=== PATIENT | male | born 1965 | race Caucasian/White ===

== ENCOUNTER 2016-11-25 18:04 | Inpatient (IN) | payer MEDICARE, OTHER ==
[2016-11-25] VITALS (7 sets, daily range): BP systolic 145; BP diastolic 97; PULSE 54–86; RESP 20; TEMP 97.9–98.6; O2SAT 94–100
[~2016-11-25] VITALS: Ht 185.4 cm; Wt 81.1 kg
[~2016-11-25 18:04] MED LIST: GABA300 PO; LORTA5 PO; SERO400T PO; SILV1CRE59 TOP; ZOLP10TA3 PO
[2016-11-25] MEDS ORDERED: HEPARIN SODIUM - IV 10,000 UNITS/10 ML VIAL IV STA (18:08)
[2016-11-25] MEDS ORDERED: SODIUM CHLOR 0.9% 1000 ML INJ 1,000 ML IV ONE (18:08)
[2016-11-25] MEDS ORDERED: SODIUM CHLORIDE 0.9% FLUSH 10 ML FLUSH IVF PRN (18:15)
[2016-11-25] MEDS ORDERED: HEPARIN-D5W INJ 250 ML ONE (18:15)
--- NOTE | 2016-11-25 18:31 | PD ---
HPI Chief Complaint: STEMI Alert Time Seen by Provider: 18:08 Travel History International Travel<30 days: No Contact w/Intl Traveler<30days: No Traveled to known affect area: No History of Present Illness HPI 51-year-old male with history of hypertension, presents to the ER today brought in by EMS for substernal chest pains which she rates it a 10 out of 10, diaphoresis, nausea, which was evaluated by EMS. EKG shows ST elevation IL. EMS had given him aspirin. His blood pressure was initially low and nitroglycerin was not given by EMS. Patient has family history of father who had at the age of 63 due to IL. Modifying Factors: None Associated Signs & Symptoms: STEMI Risk Factors: Family history of IL at 60 PFSH Past Medical History Asthma: No Bipolar Disorder: Yes Diabetes: No Diminished Hearing: No Tetanus Vaccination: < 5 Years Influenza Vaccination: No ?: Not Past Surgical History Appendectomy: Yes Tonsillectomy: Yes Social History Alcohol Use: No Tobacco Use: No Substance Use: No Allergies-Medications (Allergen,Severity, Reaction): Coded Allergies: No Known Allergies (Unverified , 11/25/16) Per pt. Reported Meds & Prescriptions Reported Meds & Active Scripts Active [place] 5-325 mg (Hydrocodone-Acetaminophen 5-325 mg) 1 Tab 1 Tab PO Q6H PRN Silvadene (Silver Sulfadiazine) 50 Gm Cr 1 Applic TOP BID 14 Days Reported Ambien 10 Mg Tab (Zolpidem Tartrate) 10 Mg Tab 10 Mg PO HS Neurontin (Gabapentin) 300 Mg Cap 300 Mg PO DAILY Seroquel 400 mg (Quetiapine Fumarate) 400 Mg Tab 400 Mg PO HS Review of Systems Except as stated in HPI: all other systems reviewed are Neg Physical Exam Narrative GENERAL: Well-developed middle age white male patient who is in moderate distress. Awake and oriented 3. SKIN: Focused skin assessment cool and Diaphoretic. HEAD: Atraumatic. Normocephalic. EYES: Pupils equal and round. No scleral icterus. No injection or drainage. ENT: No nasal bleeding or discharge. Mucous membranes pink and moist. NECK: Trachea midline. No JVD. CARDIOVASCULAR: Regular rate and rhythm. No murmur appreciated. RESPIRATORY: No accessory muscle use. Clear to auscultation. Breath sounds equal bilaterally. GASTROINTESTINAL: Abdomen soft, non-tender, nondistended. Hepatic and splenic margins not palpable. MUSCULOSKELETAL: No obvious deformities. No clubbing. No cyanosis. No edema. NEUROLOGICAL: Awake and alert. No obvious cranial nerve deficits. Motor grossly within normal limits. Normal speech. PSYCHIATRIC: Appropriate mood and affect; insight and judgment normal. Data Data Last Documented VS Vital Signs Date Time Temp Pulse Resp B/P Pulse Ox O2 Delivery O2 Flow Rate FiO2 11/25/16 18:15 Nasal Cannula 2 11/25/16 18:15 97 11/25/16 18:09 97.9 54 20 145/97 Orders Troponin I (11/25/16 18:08) Ckmb (Isoenzyme) Profile (11/25/16 18:08) Complete Blood Count With Diff (11/25/16 18:08) I-Stat Profile (11/25/16 18:08) I-Stat Creatinine (11/25/16 18:08) Calcium (11/25/16 18:08) Magnesium (Mg) (11/25/16 18:08) Prothrombin Time / Inr (Pt) (11/25/16 18:08) Act Partial Throm Time (Ptt) (11/25/16 18:08) B-Type Natriuretic Peptide (11/25/16 18:08) Electrocardiogram (11/25/16 18:08) Oxygen Administration (11/25/16 18:08) Iv Access Insert/Monitor (11/25/16 18:08) Oximetry (11/25/16 18:08) Sodium Chlor 0.9% 1000 Ml Inj (Ns 1000 M (11/25/16 18:08) Sodium Chloride 0.9% Flush (Ns Flush) (11/25/16 18:15) Heparin Inj (Heparin Inj) (11/25/16 18:08) Heparin-D5w Inj (Heparin-D5w Inj) (11/25/16 18:15) Chest, Single Ap (11/25/16 18:20) Consult Cardiology (11/25/16 ) Admit Order (Ed Use Only) (11/25/16 18:23) MDM Medical Decision Making Medical Screen Exam Complete: Yes Emergency Medical Condition: Yes Medical Record Reviewed: Yes Interpretation(s) EKG shows ST elevations in inferior and lateral leads. His STs are depressed in the V1 through V3 leads. Concerning for ST elevation IL. Differential Diagnosis ST elevation IL versus pericarditis versus electrolyte abnormalities Narrative Course Case was discussed with Dr. Tafoya for ST elevation IL and ST elevation IL protocol was initiated and heparin was given. Patient is then discussed with family practice resident service for admission. Dr. Tafoya plans to take the patient to catheterization lab for further treatment. Procedures EKG Prior to Arrival: Yes Diagnosis Primary Impression: ST elevation IL (STEMI) Admitting Information Admitting Physician Requests: Admit Artemio Trinidad MD Nov 25, 2016 18:31
[2016-11-25 18:41] LABS: I-STAT SODIUM 141 MMOL/L (138-146)
[2016-11-25] MEDS ORDERED: MIDAZOLAM HCL 2 MG/2 ML VIAL ONE (18:42)
[2016-11-25] MEDS ORDERED: HEPARIN-NS/PF INJ 500 ML ONE (18:42)
[2016-11-25 18:45] LABS: APTT (PATIENT) 25.2 SEC (24.3-30.1); INTERNATIONAL NORMALIZED RATIO 1.1 RATIO; PROTHROMBIN TIME - PATIENT 12.1 SEC (9.8-11.6)
[2016-11-25 18:53] LABS: AUTOMATED NEUTROPHIL # 6.8 TH/MM3 (1.8-7.7); BASOPHIL # 0.1 TH/MM3 (0-0.2); BASOPHIL % 0.8 % (0.0-2.0); EOSINOPHIL # 0.1 TH/MM3 (0-0.4); EOSINOPHIL % 0.9 % (0.0-4.0); HEMATOCRIT 46.8 % (39.0-51.0); HEMO FLAGS DIFF FINAL; LYMPH % 31.3 % (9.0-44.0); LYMPHOCYTE # 3.7 TH/MM3 (1.0-4.8); MEAN CELL VOLUME 95.3 FL (80.0-100.0); MEAN CORPUSCULAR HEMOGLOBIN 31.9 PG (27.0-34.0); MEAN CORPUSCULAR HGB CONC 33.4 % (32.0-36.0); MONO % 8.8 % (0.0-8.0); NEUT % 58.2 % (16.0-70.0); PLATELET COUNT 290 TH/MM3 (150-450); RED BLOOD COUNT 4.91 MIL/MM3 (4.50-5.90); RED CELL DISTRIBUTION WIDTH 13.1 % (11.6-17.2); WHITE BLOOD COUNT 11.7 TH/MM3 (4.0-11.0)
[2016-11-25 18:59] LABS: CREATINE KINASE 101 U/L (39-308); MAGNESIUM 2.3 MG/DL (1.5-2.5)
[2016-11-25] MEDS ORDERED: BIVALIRUDIN 250 MG VIAL ONE (18:59)
[2016-11-25] MEDS ORDERED: STERILE WATER FOR INJECTION 10 ML VIAL ONE (19:00)
[2016-11-25] MEDS ORDERED: SODIUM CHLOR 0.9% 1000 ML INJ 1,000 ML IV SCH (19:11)
[2016-11-25 19:12] LABS: CKMB 2.1 NG/ML (0.5-3.6)
[2016-11-25] MEDS ORDERED: MORPHINE SULFATE 4 MG/ML INJ IV PRN (19:15)
[2016-11-25] MEDS ORDERED: SENNOSIDES 8.6 MG TAB PO PRN (19:15)
[2016-11-25] MEDS ORDERED: NALOXONE HCL 0.4 MG/ML AMP IV PRN (19:15)
[2016-11-25] MEDS ORDERED: ONDANSETRON HCL 4 MG/2 ML VIAL IVP PRN (19:15)
[2016-11-25] MEDS ORDERED: oxyCODONE/ACETAMINOPHEN 5 MG/325 MG TAB PO PRN ×2 (19:15→19:45)
[2016-11-25] MEDS ORDERED: SODIUM CHLORIDE 0.9% FLUSH 10 ML FLUSH IV FLUSH PRN (19:15)
[2016-11-25] MEDS ORDERED: oxyCODONE/ACETAMINOPHEN 10 MG/325 MG TAB PO PRN (19:15)
--- NOTE | 2016-11-25 19:18 | RADRPT ---
EXAM DATE/TIME: 11/25/2016 18:28 [facility] COMPARISON: No previous studies available for comparison. INDICATIONS : Stemi Alert MEDICAL HISTORY : None. SURGICAL HISTORY : None. ENCOUNTER: Initial ACUITY: 1 day PAIN SCORE: 8/10 LOCATION: Bilateral chest FINDINGS: A single view of the chest demonstrates the lungs to be symmetrically aerated without evidence of mas s, infiltrate or effusion. The cardiomediastinal contours are unremarkable. Osseous structures are intact. CONCLUSION: No acute cardiopulmonary process. Garcia Milton MD on November 25, 2016 at 19:16 Board Certified Radiologist. This report was verified electronically.
[2016-11-25] MEDS ORDERED: LIDOCAINE/D5W INJ 500 ML ONE (19:22)
[2016-11-25] MEDS ORDERED: TICAGRELOR 90 MG TAB PO ONE (19:26)
[2016-11-25] MEDS ORDERED: IOHEXOL 350 MG/ML 100 ML BTL (for Cath Lab) OTHER ONE (19:30)
[2016-11-25] MEDS: SODIUM CHLOR 0.9% 1000 ML INJ 1,000 ML IV SCH (19:40)
[2016-11-25] MEDS ORDERED: BIVALIRUDIN INJ 250 MG in SODIUM CHLORIDE 0.9% INJ 50 ML IV SCH (19:40)
[2016-11-25] MEDS ORDERED: ACETAMINOPHEN 325 MG TAB PO PRN (19:45)
[2016-11-25] MEDS ORDERED: ONDANSETRON HCL 4 MG/2 ML VIAL IV PRN (19:45)
[2016-11-25] MEDS ORDERED: SODIUM CHLOR 0.9% 250 ML INJ 250 ML IV PRN (19:45)
[2016-11-25] MEDS ORDERED: ATROPINE SULFATE 1 MG/ML VIAL IV PRN (19:45)
[2016-11-25] MEDS ORDERED: TEMAZEPAM 15 MG CAP PO PRN (19:45)
[2016-11-25] MEDS ORDERED: MISC INFORMATION XX ONE (19:45)
[2016-11-25] MEDS ORDERED: MORPHINE SULFATE 4 MG/ML INJ IV PUSH PRN (19:45)
[2016-11-25] MEDS ORDERED: LORazepam 2 MG/ML VIAL IV PRN (19:45)
[2016-11-25] MEDS: SODIUM CHLORIDE 0.9% FLUSH 10 ML FLUSH IV FLUSH SCH (21:00)
--- NOTE | 2016-11-25 21:02 | HHI.HP ---
HPI Service Family Medicine Primary Care Physician Unknown Admission Diagnosis STEMI alert Diagnoses: International Travel<30 Days: No Contact w/Intl Traveler<30days: No Known Affected Area: No History of Present Illness 51-year-old male with history of hypertension currently not requiring medication , bipolar depression presenting with substernal chest pains beginning mid- morning, slowly building to 10 out of 10 in severity. A/w diaphoresis, nausea, numbness b/l hands. No shortness of breath or abdominal pain. No fevers. FH significant for father and uncle with early MS (60 yo for father, ~62 for uncle) . (Todd Cherry MD R1) Review of Systems Constitutional: DENIES: Fever Endocrine: DENIES: Polyuria Eyes: DENIES: Blurred vision Ears, nose, mouth, throat: DENIES: Hearing loss Respiratory: DENIES: Shortness of breath Cardiovascular: COMPLAINS OF: Chest pain, DENIES: Palpitations, Lower Extremity Edema Gastrointestinal: COMPLAINS OF: Nausea, DENIES: Abdominal pain, Vomiting Genitourinary: DENIES: Dysuria Musculoskeletal: DENIES: Muscle aches Integumentary: DENIES: Rash Hematologic/lymphatic: DENIES: Bruising Neurologic: COMPLAINS OF: Paresthesias (b/l hands), DENIES: Headache, Localized weakness Psychiatric: DENIES: Confusion (Todd Cherry MD R1) Past Family Social History Past Medical History Bipolar depression HTN not needing medication Past Surgical History Appendectomy Reported Medications Reported Meds & Active Scripts Active [place] 5-325 mg (Hydrocodone-Acetaminophen 5-325 mg) 1 Tab 1 Tab PO Q6H PRN Silvadene (Silver Sulfadiazine) 50 Gm Cr 1 Applic TOP BID 14 Days Reported Ambien 10 Mg Tab (Zolpidem Tartrate) 10 Mg Tab 10 Mg PO HS Neurontin (Gabapentin) 300 Mg Cap 300 Mg PO DAILY Seroquel 400 mg (Quetiapine Fumarate) 400 Mg Tab 400 Mg PO HS (Todd Cherry MD R1) Allergies: Coded Allergies: No Known Allergies (Unverified , 11/25/16) Per pt. Active Ordered Medications Current Medications Medications (Trade) Dose Ordered Sig/Lesli Route Start Time Stop Time Status Last Admin (NS 1000 ml Inj) 1,000 ml @ 130 mls/hr Q7H42M IV 11/25/16 19:11 (NS Flush) 2 ml UNSCH PRN IV FLUSH 11/25/16 19:15 (NS Flush) 2 ml BID IV FLUSH 11/25/16 21:00 (Colace) 100 mg Q12H PO 11/25/16 19:15 (Senokot) 17.2 mg Q12H PRN PO 11/25/16 19:15 Naloxone HCl 0.4 mg 0.4 mg UNSCH PRN IV 11/25/16 19:15 (NS 1000 ml Inj) 1,000 ml @ 100 mls/hr Q10H IV 11/25/16 19:40 11/26/16 07:39 (Tylenol) 325 mg Q4H PRN PO 11/25/16 19:45 (Percocet 5-325 Mg) 1 tab Q4H PRN PO 11/25/16 19:45 (Morphine Inj) 2 mg Q30M PRN IV PUSH 11/25/16 19:45 (Restoril) 15 mg HS PRN PO 11/25/16 19:45 (Aspirin Chew) 81 mg DAILY PO 11/26/16 09:00 Ticagrelor 90 mg 90 mg BID PO 11/26/16 09:00 (Angiomax Inj/NS Inj) 50 ml @ 0 mls/hr Q0M IV 11/25/16 19:40 11/25/16 23:39 (Ativan Inj) 0.5 mg UNSCH PRN IV 11/25/16 19:45 11/26/16 19:44 Atropine Sulfate 0.5 mg 0.5 mg UNSCH PRN IV 11/25/16 19:45 (NS 250 ml Inj) 250 ml @ 500 mls/hr ONCE PRN IV 11/25/16 19:45 11/26/16 19:44 (Zofran Inj) 4 mg Q4H PRN IV 11/25/16 19:45 (Coreg) 3.125 mg BID PO 11/25/16 21:00 (Prinivil) 5 mg DAILY PO 11/26/16 09:00 (Lipitor) 40 mg DAILY PO 11/26/16 09:00 Family History Father of MS age 60. Uncle had MS age ~62 Social History Smoked since age 15, currently 2 PPD. H/o alcohol abuse, sober for last 3 years. Marijuana use, last use 3 years ago. Denies other drug use. (Todd hCerry MD R1) Physical Exam Vital Signs Vital Signs Date Time Temp Pulse Resp B/P Pulse Ox O2 Delivery O2 Flow Rate FiO2 11/25/16 19:30 96 Nasal Cannula 2.00 11/25/16 18:15 Nasal Cannula 2 11/25/16 18:15 97 Nasal Cannula 2 11/25/16 18:15 100 Nasal Cannula 2.00 11/25/16 18:09 97.9 54 20 145/97 97 Physical Exam GENERAL: WDWN adult white male with scruffy facial hair lying in bed appearing slightly anxious but in NAD SKIN: No rashes, ecchymoses or lesions. Cool and dry. HEAD: NC/AT EYES: PERRL. EOMI. No conjunctival injection or drainage. ENT: MMM. NECK: Supple, no lymphadenopathy. No JVD. CARDIOVASCULAR: Low normal HR to mildly bradycardic. Normal S1/S2. No MRG. RESPIRATORY: Clear lung arriaza anteriorly. GASTROINTESTINAL: Abdomen soft, non-distended, non-tender. No hepato- splenomegaly or palpable masses. MUSCULOSKELETAL: Extremities without clubbing, cyanosis, or edema. NEUROLOGICAL: Awake and alert. Cranial nerves II through XII grossly intact. Moves all extremities without difficulty. Normal speech. Laboratory Laboratory Tests Test 11/25/16 18:10 White Blood Count 11.7 Red Blood Count 4.91 Hemoglobin 15.7 Bedside Hemoglobin 16.3 Hematocrit 46.8 Bedside Hematocrit 48.0 Mean Corpuscular Volume 95.3 Mean Corpuscular Hemoglobin 31.9 Mean Corpuscular Hemoglobin 33.4 Concent Red Cell Distribution Width 13.1 Platelet Count 290 Mean Platelet Volume 9.1 Neutrophils (%) (Auto) 58.2 Lymphocytes (%) (Auto) 31.3 Monocytes (%) (Auto) 8.8 Eosinophils (%) (Auto) 0.9 Basophils (%) (Auto) 0.8 Neutrophils # (Auto) 6.8 Lymphocytes # (Auto) 3.7 Monocytes # (Auto) 1.0 Eosinophils # (Auto) 0.1 Basophils # (Auto) 0.1 CBC Comment DIFF FINAL Differential Comment Prothrombin Time 12.1 Prothromb Time International 1.1 Ratio Activated Partial 25.2 Thromboplast Time Bedside Sodium 141 Bedside Potassium 4.0 Bedside Chloride 105 Bedside Blood Urea Nitrogen 18 Bedside Creatinine 0.9 Bedside Glucose 116 Calcium Level 10.3 Magnesium Level 2.3 Total Creatine Kinase 101 Creatine Kinase MB 2.1 Troponin I 0.11 B-Type Natriuretic Peptide LESS THAN 2 (Todd Cherry MD R1) Result Diagram: 11/25/161809 Imaging Last Impressions Chest X-Ray 11/25/161819 Signed Impressions: Service Date/Time: Sunday, November 25, 2016 18:28 - CONCLUSION: No acute cardiopulmonary process. Garcia Milton MD Course EKG shows ST elevation MS inferiorly, likely posterior MS. EMS had given him aspirin. His blood pressure was initially low and nitroglycerin was not given by EMS. Cardiology taking patient for catheterization. (Todd Cherry MD R1) Assessment and Plan Assessment and Plan 51 yo male with h/o bipolar depression and HTN presenting with: (Todd Cherry MD R1) Attending Attestation Patient seen and examined. Case reviewed and discussed with the resident team. Agree with plan of care as discussed with me and documented in the resident note. pt seen on admission prior to cath, has impressive EKG (Della Sherman MD) Problem List: (1) ST elevation MS (STEMI) Status: Acute Plan: STEMI by EKG, history classic. - Cardiology (Dr. Tafoya) taking patient for cath - Will need statin, optimization of BP after cath - ASA daily - Antiplatelet therapy per cardiology - Pain control with Percocet 10 for mod-severe pain - Morphine 4 mg IV Q3H PRN chest pain - Echocardiogram - Telemetry - Vitals Q4H (2) Essential hypertension Status: Chronic Plan: BPs currently running low to normal. - Evaluate in AM; will likely be placed on beta-nabil due to MS, titrate based on BP (3) Bipolar depression Status: Chronic Plan: Per patient takes Seroquel 300 mg HS, Neurontin 300 mg HS, Prozac 25 mg daily, but has been off medications for several weeks. Sx stable. - Since psychiatric medicines can prolong QT and cause arrhythmia, will hold for now - Will re-evaluate in AM, likely will need to be addressed by outpatient psychiatrist (sees one at [facility] (4) FEN/PPX Status: Acute Plan: Fluids: PO only after cath Elecs: Monitor and replete Nutrition: Diet heart healthy after cath DVT: Received heparin prior to cath, continue PPX tomorrow sdw Dr. Sherman (Todd Cherry MD R1) Physician Certification 2 Midnight Certification Type: Admission for Inpatient Services Order for Inpatient Services The services are ordered in accordance with Medicare regulations or non- Medicare payer requirements, as applicable. In the case of services not specified as inpatient-only, they are appropriately provided as inpatient services in accordance with the 2-midnight benchmark. Estimated LOS (days): 2 days is the estimated time the patient will need to remain in the hospital, assuming treatment plan goals are met and no additional complications. Post-Hospital Plan: Home (Todd Cherry MD R1) Problem Qualifiers (1) ST elevation MS (STEMI): Qualified Code: I21.21 - ST elevation myocardial infarction involving left circumflex coronary artery Todd Cherry MD R1 Nov 25, 2016 21:02 Della Sherman MD Nov 26, 2016 17:32
--- NOTE | 2016-11-25 21:46 | MB ---
cc: SEAN PETERSEN M.D. DATE OF CONSULTATION 11/25/16 REASON FOR CONSULTATION Acute STEMI CHIEF COMPLAINT Chest pain. HISTORY OF PRESENT ILLNESS Elton Valverde is a 51-year-old man brought in by EMS for an acute AL. He had 10/10 chest pain starting about an hour prior to admission. His father had coronary artery disease and at age 63 of an AL. He has smoked two packs a day since he was 15, having just recently switched to instead of smoking. Denies illicit drug use. He has a history of bipolar disease. MEDICATIONS 1. Gabapentin 2. Prozac PAST MEDICAL HISTORY Bipolar disease. PAST SURGICAL HISTORY 1. Appendectomy. 2. Tonsillectomy. SOCIAL HISTORY Notable for tobacco use. REVIEW OF SYSTEMS Negative for bleeding. Remains review of systems negative. PHYSICAL EXAMINATION GENERAL: Well-developed, well-nourished man in moderate distress. HEENT: Atraumatic, normocephalic. NECK: No JVD, no bruits. CHEST: Clear to auscultation. CARDIAC: S1, S2, S4 regular rate and rhythm. No murmur. ABDOMEN: Soft, nontender. No masses, organomegaly. EXTREMITIES: No clubbing, cyanosis or edema. Pulses are intact. CARDIOLOGY STUDIES EKG shows sinus bradycardia with extensive ST elevation inferiorly, ST depression anteriorly with 10 leads out of [address]-segment shifting. LABORATORY DATA Laboratories are charted. IMPRESSION Acute inferior posterior STEMI PLAN The patient has undergone stenting of the infarct-related artery. We will introduce YARY inhibitors, beta nabil, statin therapy aspirin and Brilinta. Anticipated hospital stay is a couple of days. MD GEORGE Valle/ /7:49 PM /9:29 PM
[2016-11-25] MEDS: CARVEDILOL 3.125 MG TAB PO SCH (22:23)
[2016-11-25] MEDS: DOCUSATE SODIUM 100 MG CAP PO SCH (22:23)
[2016-11-26] VITALS (26 sets, daily range): BP systolic 85–123; BP diastolic 50–78; PULSE 57–96; RESP 16–20; TEMP 97.3–99.1; O2SAT 92–100
--- NOTE | 2016-11-26 04:22 | MA ---
cc: SEAN PETERSEN M.D. DATE: 11/25/2016 PREOPERATIVE DIAGNOSIS Acute inferoposterior ST-segment elevation [place]. POSTPROCEDURE DIAGNOSIS Total occlusion of the major circumflex marginal branch. PROCEDURE PERFORMED Left heart catheterization, left ventriculography, coronary angiography, balloon angioplasty and stenting of the major first obtuse marginal branch of the left circumflex coronary artery. DESCRIPTION OF PROCEDURE The patient was brought to the cardiac medical laboratory assistant under emergency conditions with a STEMI. Using 1% lidocaine for local anesthesia access was obtained of the right femoral artery and a 6.5-Moldovan sheath placed. I started with a right 4 Courtney guiding catheter and took angiograms of the right coronary artery. This was not the infarct-related artery. However, I then took diagnostic angiograms of the left coronary artery using a 6-Moldovan left 4.5 Courtney catheter. I then switched to a 6-[place]old[place] XB 4.0 guiding catheter. The circumflex artery was then wired with a BMW wire. I then ballooned it with a 3.0 x 20 mm balloon. Before I could inserta stent, the patient then went into V-fib and had to be shocked. Drug-eluting stent was getting ready to be put in and he had to be shocked a second time. Following that, the stent was deployed across the lesion at 10 atmospheres. The central portion of the stent was then post dilated with a 3.5 x 20 mm NC balloon at 16 atmospheres. An outstanding angiographic result was achieved with tremendous improvement in his symptoms. He then kind of stayed in an accelerated idioventricular rhythm but had a stable blood pressure. An angled pigtail catheter was then used to measure left ventricular pressure followed by a hand injection and then a pullback. The sheath was then sewn in place. The patient is going to be transferred to the [facility]. Currently he is stable. FINDINGS HEMODYNAMICS Left ventricular pressure was 113 systolic with an end-diastolic pressure of 14. Aortic pressure was 127/82 with a mean of 102. There is no gradient during pullback from the left ventricle to the aorta. LEFT VENTRICULOGRAPHY Ejection fraction was about 45% with severe inferoapical hypokinesis. There is no mitral regurgitation. CORONARY ANGIOGRAPHY The left main coronary artery appears normal. It bifurcates into the LAD and circumflex vessels. The left main coronary artery appears normal. The left anterior descending artery has about 10% proximal irregularities. There is a very early proximal diagonal branch given off which has 60-70% proximal stenosis. The circumflex artery is technically nondominant although it does give off a very large obtuse marginal branch and a significant distal circumflex vessel. The major obtuse marginal branch is totally occluded in stump-like fashion. The right coronary artery is technically dominant but it is small caliber. It has a funnel shape vertical takeoff with a proximal curve that is prominent from where it courses around the aorta. It is a small caliber vessel. It does give off a small PDA and a small posterolateral branch. It has some 20% mid irregularities. RESULTS OF STENTING Following stenting of the major obtuse marginal branch, 0% residual stenosis has been achieved with a nice step-up on both sounds and nondenominational of KAYKAY grade 3 flow. CONCLUSION 1. Mildly impaired LV function. 2. Acute ST-segment elevation [place] due to total occlusion of a very large obtuse marginal branch. 3. Successful drug-eluting stent, implantation of the obtuse marginal branch. 4. Procedure complicated by V-fib requiring two cardioversions with success. PLAN The patient will be placed on aspirin and Brilinta. Will introduce beta-blockers and YARY inhibitors gradually as hemodynamics permit. Will check lipid values and place him on statin therapy as appropriate. He will be advised to completely discontinue nicotine products. MD GEORGE Valle/DONI /7:38 PM /3:44 AM
[2016-11-26 05:04] LABS: AUTOMATED NEUTROPHIL # 9.7 TH/MM3 (1.8-7.7); BASOPHIL % 0.2 % (0.0-2.0); EOSINOPHIL % 0.4 % (0.0-4.0); HEMATOCRIT 39.4 % (39.0-51.0); HEMO FLAGS DIFF FINAL; LYMPH % 11.6 % (9.0-44.0); LYMPHOCYTE # 1.4 TH/MM3 (1.0-4.8); MEAN CELL VOLUME 94.6 FL (80.0-100.0); MEAN CORPUSCULAR HEMOGLOBIN 32.6 PG (27.0-34.0); MEAN CORPUSCULAR HGB CONC 34.4 % (32.0-36.0); NEUT % 77.8 % (16.0-70.0); PLATELET COUNT 253 TH/MM3 (150-450); RED BLOOD COUNT 4.16 MIL/MM3 (4.50-5.90); RED CELL DISTRIBUTION WIDTH 12.7 % (11.6-17.2); WHITE BLOOD COUNT 12.5 TH/MM3 (4.0-11.0)
[2016-11-26 05:28] LABS: BICARBONATE 23.9 MEQ/L (21.0-32.0)
[2016-11-26] MEDS: SODIUM CHLOR 0.9% 1000 ML INJ 1,000 ML IV SCH (05:40)
[2016-11-26 05:45] LABS: HDL CHOLESTEROL 41.6 MG/DL (40.0-60.0)
--- NOTE | 2016-11-26 07:52 | HHI.HP ---
HPI Service Family Medicine Primary Care Physician Unknown Admission Diagnosis STEMI alert Diagnoses: (1) ST elevation [place] (STEMI) Diagnosis: Principal (2) Essential hypertension Diagnosis: Principal (3) Bipolar depression Diagnosis: Principal (4) FEN/PPX Diagnosis: Principal International Travel<30 Days: No Contact w/Intl Traveler<30days: No Known Affected Area: No History of Present Illness Mr Valverde is a 51-year-old male with history of hypertension currently not requiring medication and bipolar depression presenting with substernal chest pains beginning mid-morning of admission, slowly building to 10 out of 10 in severity. He had diaphoresis, nausea, numbness b/l hands. No shortness of breath or abdominal pain. No fevers. FH significant for father and uncle with early DC (60 yo for father, ~62 for uncle). He had a cardiac cath and had a stent placed with good result. He required shocking twice during the procedure because of arrhythmias but feels the electricity "made him think clearer and feel better". He reports feeling great today. Review of Systems Other Constitutional: DENIES: Fever Endocrine: DENIES: Polyuria Eyes: DENIES: Blurred vision Ears, nose, mouth, throat: DENIES: Hearing loss Respiratory: DENIES: Shortness of breath Cardiovascular: COMPLAINS OF: Chest pain, DENIES: Palpitations, Lower Extremity Edema Gastrointestinal: COMPLAINS OF: Nausea, DENIES: Abdominal pain, Vomiting Genitourinary: DENIES: Dysuria Musculoskeletal: DENIES: Muscle aches Integumentary: DENIES: Rash Hematologic/lymphatic: DENIES: Bruising Neurologic: COMPLAINS OF: Paresthesias (b/l hands), DENIES: Headache, Localized weakness Psychiatric: DENIES: Confusion Past Family Social History Past Medical History Bipolar depression HTN not needing medication Past Surgical History Appendectomy Allergies: Coded Allergies: No Known Allergies (Unverified , 11/25/16) Per pt. Family History Father of DC age 60. Uncle had DC age ~62 Social History Smoked since age 15, currently 2 PPD. H/o alcohol abuse, sober for last 3 years. Marijuana use, last use 3 years ago. Denies other drug use. Physical Exam Vital Signs Vital Signs Date Time Temp Pulse Resp B/P Pulse Ox O2 Delivery O2 Flow Rate FiO2 11/26/16 07:00 99.1 78 16 85/50 98 11/26/16 07:00 98 Room Air 11/26/16 07:00 65 11/26/16 06:00 63 11/26/16 05:46 22 11/26/16 05:00 88 11/26/16 04:00 90 11/26/16 03:33 92 Nasal Cannula 21 11/26/16 03:00 98.0 91 20 90/55 98 11/26/16 03:00 93 11/26/16 02:00 86 11/26/16 01:00 72 11/26/16 00:00 60 11/26/16 00:00 97.4 87 20 105/60 97 11/25/16 23:00 75 11/25/16 22:00 86 11/25/16 21:00 86 11/25/16 20:00 98.6 79 20 94 11/25/16 20:00 79 11/25/16 20:00 94 Room Air 11/25/16 19:30 96 Nasal Cannula 2.00 11/25/16 18:15 Nasal Cannula 2 11/25/16 18:15 97 Nasal Cannula 2 11/25/16 18:15 100 Nasal Cannula 2.00 11/25/16 18:09 97.9 54 20 145/97 97 Physical Exam GENERAL: WDWN adult white male with scruffy facial hair sitting in bed in NAD SKIN: No rashes, ecchymoses or lesions. Cool and dry. HEAD: NC/AT EYES: PERRL. EOMI. No conjunctival injection or drainage. ENT: MMM. NECK: Supple, no lymphadenopathy. No JVD. CARDIOVASCULAR: Low normal HR to mildly bradycardic. Normal S1/S2. No MRG. RESPIRATORY: Clear lung arriaza anteriorly. GASTROINTESTINAL: Abdomen soft, non-distended, non-tender. No hepato- splenomegaly or palpable masses. MUSCULOSKELETAL: Extremities without clubbing, cyanosis, or edema. NEUROLOGICAL: Awake and alert. Cranial nerves II through XII grossly intact. Moves all extremities without difficulty. Normal speech. Laboratory Laboratory Tests Test 11/25/16 11/26/16 18:10 03:15 White Blood Count 11.7 12.5 Red Blood Count 4.91 4.16 Hemoglobin 15.7 13.6 Bedside Hemoglobin 16.3 Hematocrit 46.8 39.4 Bedside Hematocrit 48.0 Mean Corpuscular Volume 95.3 94.6 Mean Corpuscular Hemoglobin 31.9 32.6 Mean Corpuscular Hemoglobin 33.4 34.4 Concent Red Cell Distribution Width 13.1 12.7 Platelet Count 290 253 Mean Platelet Volume 9.1 9.2 Neutrophils (%) (Auto) 58.2 77.8 Lymphocytes (%) (Auto) 31.3 11.6 Monocytes (%) (Auto) 8.8 10.0 Eosinophils (%) (Auto) 0.9 0.4 Basophils (%) (Auto) 0.8 0.2 Neutrophils # (Auto) 6.8 9.7 Lymphocytes # (Auto) 3.7 1.4 Monocytes # (Auto) 1.0 1.2 Eosinophils # (Auto) 0.1 0.0 Basophils # (Auto) 0.1 0.0 CBC Comment DIFF FINAL DIFF FINAL Differential Comment Prothrombin Time 12.1 Prothromb Time International 1.1 Ratio Activated Partial 25.2 Thromboplast Time Bedside Sodium 141 Bedside Potassium 4.0 Bedside Chloride 105 Bedside Blood Urea Nitrogen 18 Bedside Creatinine 0.9 Bedside Glucose 116 Calcium Level 10.3 8.6 Magnesium Level 2.3 Total Creatine Kinase 101 1466 Creatine Kinase MB 2.1 170.0 Troponin I 0.11 B-Type Natriuretic Peptide LESS THAN 2 Sodium Level 139 Potassium Level 4.0 Chloride Level 106 Carbon Dioxide Level 23.9 Anion Gap 9 Blood Urea Nitrogen 18 Creatinine 0.81 Estimat Glomerular Filtration 100 Rate Random Glucose 106 Creatine Kinase MB % 11.6 Triglycerides Level 183 Cholesterol Level 171 LDL Cholesterol 93 HDL Cholesterol 41.6 Cholesterol/HDL Ratio 4.11 Result Diagram: 11/26/165 11/26/16 0315 Imaging Last Impressions Chest X-Ray 11/25/16 1820 Signed Impressions: Service Date/Time: Friday, November 25, 2016 18:28 - CONCLUSION: No acute cardiopulmonary process. Garcia Milton MD Assessment and Plan Assessment and Plan 51 yo male with h/o bipolar depression and HTN presenting with: Problem List: (1) ST elevation [place] (STEMI) Status: Acute Plan: STEMI by EKG, history classic. - Cardiology (Dr. Tafoya) took patient for cath, had stent - Will need statin, optimization of BP after cath - ASA daily - Antiplatelet therapy per cardiology - Pain control with Percocet 10 for mod-severe pain - Morphine 4 mg IV Q3H PRN chest pain - Echocardiogram - Telemetry - Vitals Q4H (2) Essential hypertension Status: Chronic Plan: BPs currently running low to normal. - Evaluate in AM; will likely be placed on beta-nabil due to DC, titrate based on BP (3) Bipolar depression Status: Chronic Plan: Per patient takes Seroquel 300 mg HS, Neurontin 300 mg HS, Prozac 25 mg daily, but has been off medications for several weeks. Sx stable. - pt requests restarting meds and can check EKG to be sure he does not develop problems - likely will need to be addressed by outpatient psychiatrist (sees one at [facility]) but will start meds now lower doses (4) FEN/PPX Status: Acute Plan: Fluids: PO only after cath Elecs: Monitor and replete Nutrition: Diet heart healthy after cath DVT: Received heparin prior to cath, continue PPX tomorrow Physician Certification 2 Midnight Certification Type: Admission for Inpatient Services Order for Inpatient Services The services are ordered in accordance with Medicare regulations or non- Medicare payer requirements, as applicable. In the case of services not specified as inpatient-only, they are appropriately provided as inpatient services in accordance with the 2-midnight benchmark. Estimated LOS (days): 3 3 days is the estimated time the patient will need to remain in the hospital, assuming treatment plan goals are met and no additional complications. Post-Hospital Plan: Home Problem Qualifiers (1) ST elevation DC (STEMI): Qualified Code: I21.21 - ST elevation myocardial infarction involving left circumflex coronary artery Della Sherman MD Nov 26, 2016 07:52
[2016-11-26] MEDS: ATORVASTATIN 40 MG TAB PO SCH (09:03)
[2016-11-26] MEDS: SODIUM CHLORIDE 0.9% FLUSH 10 ML FLUSH IV FLUSH SCH ×2 (09:03→21:04)
[2016-11-26] MEDS: ASPIRIN 81 MG CHEW TAB PO SCH (09:04)
[2016-11-26] MEDS: CARVEDILOL 3.125 MG TAB PO SCH ×2 (09:04→21:00)
[2016-11-26] MEDS: DOCUSATE SODIUM 100 MG CAP PO SCH ×2 (09:04→18:40)
[2016-11-26] MEDS: TICAGRELOR 90 MG TAB PO SCH ×2 (09:04→20:59)
[2016-11-26] MEDS: LISINOPRIL 5 MG TAB PO SCH (09:04)
[2016-11-26] MEDS: GABAPENTIN 300 MG CAP PO SCH (11:30)
[2016-11-26] MEDS: FLUoxetine HCL 20 MG CAP PO SCH (11:30)
--- NOTE | 2016-11-26 13:14 | PD.CARD.PN ---
Subjective Subjective Remarks no complaints Objective Medications Current Medications Medications (Trade) Dose Ordered Sig/Lesli Route Start Time Stop Time Status Last Admin (NS Flush) 2 ml UNSCH PRN IV FLUSH 11/25/16 19:15 (NS Flush) 2 ml BID IV FLUSH 11/25/16 21:00 11/26/16 09:03 (Colace) 100 mg Q12H PO 11/25/16 19:15 11/26/16 09:04 (Senokot) 17.2 mg Q12H PRN PO 11/25/16 19:15 (Narcan Inj) 0.4 mg UNSCH PRN IV 11/25/16 19:15 (Tylenol) 325 mg Q4H PRN PO 11/25/16 19:45 (Percocet 5-325 Mg) 1 tab Q4H PRN PO 11/25/16 19:45 11/26/16 05:03 (Morphine Inj) 2 mg Q30M PRN IV PUSH 11/25/16 19:45 (Restoril) 15 mg HS PRN PO 11/25/16 19:45 (Aspirin Chew) 81 mg DAILY PO 11/26/16 09:00 11/26/16 09:04 (Brilinta) 90 mg BID PO 11/26/16 09:00 11/26/16 09:04 (Ativan Inj) 0.5 mg UNSCH PRN IV 11/25/16 19:45 11/26/16 19:44 Atropine Sulfate 0.5 mg 0.5 mg UNSCH PRN IV 11/25/16 19:45 (NS 250 ml Inj) 250 ml @ 500 mls/hr ONCE PRN IV 11/25/16 19:45 11/26/16 19:44 (Zofran Inj) 4 mg Q4H PRN IV 11/25/16 19:45 (Coreg) 3.125 mg BID PO 11/25/16 21:00 11/26/16 09:04 (Prinivil) 5 mg DAILY PO 11/26/16 09:00 11/26/16 09:04 (Lipitor) 40 mg DAILY PO 11/26/16 09:00 11/26/16 09:03 (PROzac) 20 mg DAILY PO 11/26/16 11:15 11/26/16 11:30 (Neurontin) 300 mg DAILY PO 11/26/16 11:15 11/26/16 11:30 (SEROquel) 100 mg HS PO 11/26/16 21:00 Vital Signs / I&O Vital Signs Date Time Temp Pulse Resp B/P Pulse Ox O2 Delivery O2 Flow Rate FiO2 11/26/16 12:00 69 11/26/16 11:00 97.3 65 20 123/78 100 11/26/16 11:00 67 11/26/16 10:00 72 11/26/16 09:00 61 11/26/16 08:00 71 11/26/16 07:00 99.1 78 16 85/50 98 11/26/16 07:00 98 Room Air 11/26/16 07:00 65 11/26/16 06:00 63 11/26/16 05:46 22 11/26/16 05:00 88 11/26/16 04:00 90 11/26/16 03:33 92 Nasal Cannula 21 11/26/16 03:00 98.0 91 20 90/55 98 11/26/16 03:00 93 11/26/16 02:00 86 11/26/16 01:00 72 11/26/16 00:00 60 11/26/16 00:00 97.4 87 20 105/60 97 11/25/16 23:00 75 11/25/16 22:00 86 11/25/16 21:00 86 11/25/16 20:00 98.6 79 20 94 11/25/16 20:00 79 11/25/16 20:00 94 Room Air 11/25/16 19:30 96 Nasal Cannula 2.00 11/25/16 18:15 Nasal Cannula 2 11/25/16 18:15 97 Nasal Cannula 2 11/25/16 18:15 100 Nasal Cannula 2.00 11/25/16 18:09 97.9 54 20 145/97 97 I/O 11/25/16 11/25/16 11/25/16 11/26/16 11/26/16 11/26/16 07:00 15:00 23:00 07:00 15:00 23:00 Intake Total 1600 ml Output Total 750 ml Balance 850 ml Intake Oral 600 ml IV Total 1000 ml Output Urine Total 750 ml # Bowel Movements 0 Physical Exam GENERAL: Well developed, well nourished. No acute distress. HEENT: Jugular venous pressure is normal. CHEST: Lungs clear to auscultation bilaterally. Unlabored respiratory effort. CARDIAC: S1 S2 regular rate and rhythm. ABDOMEN: Soft, nontender, no hepatosplenomegaly. Bowel sounds present. EXTREMITIES: No clubbing, cyanosis, or edema. Right groin OK Laboratory Laboratory Tests Test 11/25/16 11/26/16 18:10 03:15 White Blood Count 11.7 TH/MM3 12.5 TH/MM3 Red Blood Count 4.91 MIL/MM3 4.16 MIL/MM3 Hemoglobin 15.7 GM/DL 13.6 GM/DL Bedside Hemoglobin 16.3 G/DL Hematocrit 46.8 % 39.4 % Bedside Hematocrit 48.0 % Mean Corpuscular Volume 95.3 FL 94.6 FL Mean Corpuscular Hemoglobin 31.9 PG 32.6 PG Mean Corpuscular Hemoglobin 33.4 % 34.4 % Concent Red Cell Distribution Width 13.1 % 12.7 % Platelet Count 290 TH/MM3 253 TH/MM3 Mean Platelet Volume 9.1 FL 9.2 FL Neutrophils (%) (Auto) 58.2 % 77.8 % Lymphocytes (%) (Auto) 31.3 % 11.6 % Monocytes (%) (Auto) 8.8 % 10.0 % Eosinophils (%) (Auto) 0.9 % 0.4 % Basophils (%) (Auto) 0.8 % 0.2 % Neutrophils # (Auto) 6.8 TH/MM3 9.7 TH/MM3 Lymphocytes # (Auto) 3.7 TH/MM3 1.4 TH/MM3 Monocytes # (Auto) 1.0 TH/MM3 1.2 TH/MM3 Eosinophils # (Auto) 0.1 TH/MM3 0.0 TH/MM3 Basophils # (Auto) 0.1 TH/MM3 0.0 TH/MM3 CBC Comment DIFF FINAL DIFF FINAL Differential Comment Prothrombin Time 12.1 SEC Prothromb Time International 1.1 RATIO Ratio Activated Partial 25.2 SEC Thromboplast Time Bedside Sodium 141 MMOL/L Bedside Potassium 4.0 MMOL/L Bedside Chloride 105 MMOL/L Bedside Blood Urea Nitrogen 18 MG/DL Bedside Creatinine 0.9 MG/DL Bedside Glucose 116 MG/DL Calcium Level 10.3 MG/DL 8.6 MG/DL Magnesium Level 2.3 MG/DL Total Creatine Kinase 101 U/L 1466 U/L Creatine Kinase MB 2.1 NG/ML 170.0 NG/ML Troponin I 0.11 NG/ML B-Type Natriuretic Peptide LESS THAN 2 PG/ML Sodium Level 139 MEQ/L Potassium Level 4.0 MEQ/L Chloride Level 106 MEQ/L Carbon Dioxide Level 23.9 MEQ/L Anion Gap 9 MEQ/L Blood Urea Nitrogen 18 MG/DL Creatinine 0.81 MG/DL Estimat Glomerular Filtration 100 ML/MIN Rate Random Glucose 106 MG/DL Creatine Kinase MB % 11.6 % Triglycerides Level 183 MG/DL Cholesterol Level 171 MG/DL LDL Cholesterol 93 MG/DL HDL Cholesterol 41.6 MG/DL Cholesterol/HDL Ratio 4.11 RATIO Assessment and Plan Problem List: (1) Stented coronary artery Assessment and Plan: cont. ASA 81mg and Brilinta (2) Coronary artery disease (3) ST elevation [place] (STEMI) Assessment and Plan: Good reperfusion. No Q waves on EKG Assessment and Plan Probable discharge in AM Madan Tafoya MD Nov 26, 2016 13:14
--- NOTE | 2016-11-26 14:33 | EKG ---
Date Performed: 11/25/2016 Time Performed: 18:12:13 PTAGE: 51 years EKG: ATRIAL FIBRILLATION WITH SLOW VENTRICULAR RESPONSE MARKED ST ELEVATION, CONSIDER INFERIOR I NJURY Probable acute inferolateral PR Clinical correlation is strongly recommended ACUTE PR NO PREVIOUS TRACING DOCTOR: Logan Bragg Interpretating Date/Time 11/26/2016 14:31:50
[2016-11-26] MEDS ORDERED: QUEtiapine FUMARATE 100 MG TAB PO SCH (21:00)
[2016-11-27] VITALS (13 sets, daily range): BP systolic 90–102; BP diastolic 51–64; PULSE 54–82; RESP 16–20; TEMP 97.6–98; O2SAT 97–98
[2016-11-27 06:53] LABS: AUTOMATED NEUTROPHIL # 5.4 TH/MM3 (1.8-7.7); BASOPHIL # 0.1 TH/MM3 (0-0.2); BASOPHIL % 0.6 % (0.0-2.0); EOSINOPHIL % 0.5 % (0.0-4.0); HEMATOCRIT 39.1 % (39.0-51.0); HEMO FLAGS DIFF FINAL; LYMPH % 26.5 % (9.0-44.0); LYMPHOCYTE # 2.3 TH/MM3 (1.0-4.8); MEAN CELL VOLUME 95.1 FL (80.0-100.0); MEAN CORPUSCULAR HEMOGLOBIN 31.8 PG (27.0-34.0); MEAN CORPUSCULAR HGB CONC 33.5 % (32.0-36.0); MONO % 9.3 % (0.0-8.0); NEUT % 63.1 % (16.0-70.0); PLATELET COUNT 208 TH/MM3 (150-450); RED BLOOD COUNT 4.11 MIL/MM3 (4.50-5.90); RED CELL DISTRIBUTION WIDTH 13.3 % (11.6-17.2); WHITE BLOOD COUNT 8.5 TH/MM3 (4.0-11.0)
[2016-11-27] MEDS: DOCUSATE SODIUM 100 MG CAP PO SCH (07:15)
[2016-11-27] MEDS ORDERED: QUET1TAB8 PO (08:17)
[2016-11-27] MEDS ORDERED: FLUO20CA4 PO (08:17)
[2016-11-27] MEDS ORDERED: DOCU1CAP39 PO (08:17)
[2016-11-27] MEDS ORDERED: OXYC1TAB63 PO (08:17)
[2016-11-27] MEDS ORDERED: LISI-519 PO (08:17)
[2016-11-27] MEDS ORDERED: ATOR40TA16 PO (08:17)
[2016-11-27] MEDS ORDERED: NEUR300C PO (08:17)
[2016-11-27] MEDS ORDERED: BRIL90TA PO (08:17)
[2016-11-27] MEDS ORDERED: Aspirin Chew PO (08:17)
[2016-11-27] MEDS ORDERED: CARV3.125 PO (08:17)
[2016-11-27] MEDS: LISINOPRIL 5 MG TAB PO SCH (09:00)
[2016-11-27] MEDS: CARVEDILOL 3.125 MG TAB PO SCH (09:00)
[2016-11-27] MEDS: ATORVASTATIN 40 MG TAB PO SCH (09:12)
[2016-11-27] MEDS: GABAPENTIN 300 MG CAP PO SCH (09:12)
[2016-11-27] MEDS: ASPIRIN 81 MG CHEW TAB PO SCH (09:12)
[2016-11-27] MEDS: FLUoxetine HCL 20 MG CAP PO SCH (09:12)
[2016-11-27] MEDS: SODIUM CHLORIDE 0.9% FLUSH 10 ML FLUSH IV FLUSH SCH (09:13)
[2016-11-27] MEDS: TICAGRELOR 90 MG TAB PO SCH (09:13)
--- NOTE | 2016-11-27 10:23 | HHI.FPPN ---
Subjective Remarks Mr. Valverde was seen and examined this morning. He feels great, slept well, not dizzy at rest or with standing. Worked with PT without difficulty. No chest pain or shortness of breath. Soreness gone in chest. He does mention that he has much better mentation and mood since his defibrillation episodes during his cath on 11/25. (Varsha Gardner MD R1) Objective Vitals Vital Signs Date Time Temp Pulse Resp B/P Pulse Ox O2 Delivery O2 Flow Rate FiO2 11/27/16 09:10 102/64 11/27/16 07:41 97 Room Air 11/27/16 07:41 97.6 54 16 90/51 97 11/27/16 07:18 58 11/27/16 06:00 58 11/27/16 05:00 55 11/27/16 04:00 60 11/27/16 03:00 97.8 58 20 95/52 98 11/27/16 03:00 57 11/27/16 02:00 73 11/27/16 01:00 58 11/27/16 00:00 69 11/27/16 00:00 98.0 63 20 100/55 98 11/26/16 23:00 61 11/26/16 22:00 64 11/26/16 21:06 99 2.00 11/26/16 21:00 72 11/26/16 20:00 98 Room Air 11/26/16 20:00 74 11/26/16 20:00 97.6 69 20 94/57 98 11/26/16 19:00 87 11/26/16 18:00 82 11/26/16 17:00 64 11/26/16 16:00 57 11/26/16 15:00 98.3 76 18 106/60 99 11/26/16 15:00 65 11/26/16 14:00 70 11/26/16 13:00 62 11/26/16 12:00 69 11/26/16 11:00 97.3 65 20 123/78 100 11/26/16 11:00 67 I/O 11/26/16 11/26/16 11/26/16 11/27/16 11/27/16 11/27/16 07:00 15:00 23:00 07:00 15:00 23:00 Intake Total 1600 ml 1080 ml 720 ml Output Total 750 ml Balance 850 ml 1080 ml 720 ml Intake Oral 600 ml 1080 ml 720 ml IV Total 1000 ml Output Urine Total 750 ml # Voids 3 1 # Bowel Movements 0 1 (Varsha Gardner MD R1) Result Diagram: 11/27/16 0520 11/27/16 0520 Imaging Last 72 hours Impressions Chest X-Ray 11/25/16 1820 Signed Impressions: Service Date/Time: Friday, November 25, 2016 18:28 - CONCLUSION: No acute cardiopulmonary process. Garcia Milton MD Objective Remarks GENERAL: well-nourished pleasant adult white male lying in bed in no apparent distress SKIN: No rashes, ecchymoses or lesions. Cool and dry. HEAD: NC/AT EYES: PERRL. EOMI. No conjunctival injection or drainage. ENT: MMM. NECK: Supple, no lymphadenopathy. No JVD. CARDIOVASCULAR: Normal rate and rhythm. Normal S1/S2. No MRG. RESPIRATORY: Clear lung arriaza anteriorly. GASTROINTESTINAL: Abdomen soft, non-distended, non-tender. No hepato- splenomegaly or palpable masses. MUSCULOSKELETAL: Extremities without clubbing, cyanosis, or edema. NEUROLOGICAL: Awake and alert. Cranial nerves II through XII grossly intact. Moves all extremities without difficulty. Normal speech. Medications and IVs Inpatient Medications Acetaminophen (Tylenol) 325 mg Q4H PRN PO PAIN SCALE 1 TO 2; Start 11/25/16 at 19:45 Aspirin (Aspirin Chew) 81 mg DAILY PO Last administered on 11/27/16 09:12; Start 11/26/16 at 09:00 Atorvastatin Calcium (Lipitor) 40 mg DAILY PO Last administered on 11/27/16 09 :12; Start 11/26/16 at 09:00 Atropine Sulfate 0.5 mg 0.5 mg UNSCH PRN IV ANXIETY; Start 11/25/16 at 19:45 Bivalirudin/ Sodium Chloride (Angiomax Inj/NS Inj) 50 ml @ 0 mls/hr Q0M IV ; Start 11/25/16 at 19:40; Stop 11/25/16 at 23:39; Status DC Carvedilol (Coreg) 3.125 mg BID PO Last administered on 11/26/16 09:04; Start 11/25/16 at 21:00 Docusate Sodium (Colace) 100 mg Q12H PO Last administered on 11/26/16 18:40; Start 11/25/16 at 19:15 Fluoxetine HCl (PROzac) 20 mg DAILY PO Last administered on 11/27/16 09:12; Start 11/26/16 at 11:15 Gabapentin (Neurontin) 300 mg DAILY PO Last administered on 11/27/16 09:12; Start 11/26/16 at 11:15 Heparin Sodium (Porcine) (Heparin Inj) 5,000 units NOW STAT IV Last administered on 11/25/16 18:26; Start 11/25/16 at 18:08; Stop 11/25/16 at 18:10 ; Status DC Lisinopril (Prinivil) 5 mg DAILY PO Last administered on 11/26/16 09:04; Start 11/26/16 at 09:00 Lorazepam (Ativan Inj) 0.5 mg UNSCH PRN IV ANXIETY; Start 11/25/16 at 19:45; Stop 11/26/16 at 19:44; Status DC Miscellaneous Information 1 ONCE ONCE XX ; Start 11/25/16 at 19:45; Stop at 20:29; Status DC Morphine Sulfate (Morphine Inj) 2 mg Q30M PRN IV PUSH BREAKTHROUGH PAIN; Start 11/25/16 at 19:45 Naloxone HCl 0.4 mg 0.4 mg UNSCH PRN IV SEE LABEL COMMENTS; Start 11/25/16 at 19:15 Ondansetron HCl (Zofran Inj) 4 mg Q4H PRN IV NAUSEA; Start 11/25/16 at 19:45 Oxycodone/ Acetaminophen (Percocet 5-325 Mg) 1 tab Q4H PRN PO PAIN SCALE 3 TO 10 Last administered on 11/26/16 05:03; Start 11/25/16 at 19:45 Oxycodone/ Acetaminophen (Percocet 10-325 Mg) 1 tab Q6H PRN PO PAIN SCALE 6 TO 10; Start 11/25/16 at 19:15; Stop 11/25/16 at 20:37; Status DC Quetiapine Fumarate (SEROquel) 100 mg HS PO Last administered on 11/26/16 21: 00; Start 11/26/16 at 21:00 Sennosides (Senokot) 17.2 mg Q12H PRN PO CONSTIPATION; Start 11/25/16 at 19:15 Sodium Chloride (NS 1000 ml Inj) 1,000 ml @ 100 mls/hr Q10H IV Last administered on 11/25/16 19:40; Start 11/25/16 at 19:40; Stop 11/26/16 at 07:39 ; Status DC Sodium Chloride (NS 250 ml Inj) 250 ml @ 500 mls/hr ONCE PRN IV VAGAL REPONSE ; Start 11/25/16 at 19:45; Stop 11/26/16 at 19:44; Status DC Sodium Chloride (NS Flush) 2 ml BID IV FLUSH Last administered on 11/27/16 09: 13; Start 11/25/16 at 21:00 Temazepam (Restoril) 15 mg HS PRN PO SLEEP; Start 11/25/16 at 19:45 Ticagrelor 90 mg 90 mg BID PO Last administered on 11/27/16 09:13; Start 11/26 at 09:00 (Varsha Gardner MD R1) Urinary Catheter: No (Varsha Gardner MD R1) Vascular Central Line Catheter: No (Varsha Gardner MD R1) A/P Assessment and Plan 51 yo male with h/o bipolar depression and HTN presenting with chest pain and shortness of breath and workup showing STEMI, status post medical management and cardiac catheterization and stenting with good reperfusion. Discharge Planning Likely discharge to home today or tomorrow, pending clearance from cardiology ( Varsha Gardner MD R1) Attending Attestation Patient seen and examined. Case reviewed and discussed with the resident team. Agree with plan of care as discussed with me and documented in the resident note. (Della Sherman MD) Problem List: (1) ST elevation [place] (STEMI) Status: Acute Plan: Currently medically stable after catheterization and stenting on 11/[address] Tafoya. Continue medical management, including aspirin and ticagrelor per cardiology A beta nabil has not been started given asymptomatic low blood pressure Continue atorvastatin Hospital course: - STEMI by EKG, history classic. - Cardiology (Dr. Tafoya) consulted - Status post cardiac catheterization 11/25 with stent placed - ASA daily at 81 mg - Ticagrelor 90 mg by mouth twice a day - Pain control with Percocet 10 for mod-severe pain - Morphine 4 mg IV Q3H PRN chest pain - Echocardiogram - Telemetry - Vitals Q4H (2) Essential hypertension Status: Chronic Plan: BPs currently running low, max 123/70 but lows in 80s/50s, asymptomatic Cardiology DC'd carvedilol and we'll not sent home with ACEI or beta nabil on discharge Follow-up with Dr. Tafoya in 1-2 weeks to monitor (3) Bipolar depression Status: Chronic Plan: Continue Seroquel at 100 mg nightly, Neurontin at 300 mg daily, and Prozac at 20 mg daily on discharge. Hospital course: - Per patient takes Seroquel 300 mg HS, Neurontin 300 mg HS, Prozac 25 mg daily , but has been off medications for several weeks. - pt requests restarting meds and can check EKG to be sure he does not develop problems - likely will need to be addressed by outpatient psychiatrist (sees one at [facility]) but started meds at lower doses (4) FEN/PPX Status: Acute Plan: Fluids: PO hydration Diet: cardiac Elecs: Monitor and replete PRN DVT ppx: Received heparin prior to cath, ambulatory, now to d/c. Now on ASA and ticagrelor (Varsha Gardner MD R1) Problem Qualifiers (1) ST elevation [place] (STEMI): Qualified Code: I21.21 - ST elevation myocardial infarction involving left circumflex coronary artery Varsha Gardner MD R1 Nov 27, 2016 10:23 Della Sherman MD Nov 28, 2016 11:33
--- NOTE | 2016-11-27 10:26 | PD.CARD.PN ---
Subjective Subjective Remarks no complaints Objective Medications Current Medications Medications (Trade) Dose Ordered Sig/Lesli Route Start Time Stop Time Status Last Admin (NS Flush) 2 ml UNSCH PRN IV FLUSH 11/25/16 19:15 (NS Flush) 2 ml BID IV FLUSH 11/25/16 21:00 11/27/16 09:13 (Colace) 100 mg Q12H PO 11/25/16 19:15 11/26/16 18:40 (Senokot) 17.2 mg Q12H PRN PO 11/25/16 19:15 (Narcan Inj) 0.4 mg UNSCH PRN IV 11/25/16 19:15 (Tylenol) 325 mg Q4H PRN PO 11/25/16 19:45 (Percocet 5-325 Mg) 1 tab Q4H PRN PO 11/25/16 19:45 11/26/16 05:03 (Morphine Inj) 2 mg Q30M PRN IV PUSH 11/25/16 19:45 (Restoril) 15 mg HS PRN PO 11/25/16 19:45 (Aspirin Chew) 81 mg DAILY PO 11/26/16 09:00 11/27/16 09:12 (Brilinta) 90 mg BID PO 11/26/16 09:00 11/27/16 09:13 (Atropine Inj) 0.5 mg UNSCH PRN IV 11/25/16 19:45 (Zofran Inj) 4 mg Q4H PRN IV 11/25/16 19:45 (Coreg) 3.125 mg BID PO 11/25/16 21:00 11/26/16 09:04 (Prinivil) 5 mg DAILY PO 11/26/16 09:00 11/26/16 09:04 (Lipitor) 40 mg DAILY PO 11/26/16 09:00 11/27/16 09:12 (PROzac) 20 mg DAILY PO 11/26/16 11:15 11/27/16 09:12 (Neurontin) 300 mg DAILY PO 11/26/16 11:15 11/27/16 09:12 (SEROquel) 100 mg HS PO 11/26/16 21:00 11/26/16 21:00 Vital Signs / I&O Vital Signs Date Time Temp Pulse Resp B/P Pulse Ox O2 Delivery O2 Flow Rate FiO2 11/27/16 09:10 102/64 11/27/16 07:41 97 Room Air 11/27/16 07:41 97.6 54 16 90/51 97 11/27/16 07:18 58 11/27/16 06:00 58 11/27/16 05:00 55 11/27/16 04:00 60 11/27/16 03:00 97.8 58 20 95/52 98 11/27/16 03:00 57 11/27/16 02:00 73 11/27/16 01:00 58 11/27/16 00:00 69 11/27/16 00:00 98.0 63 20 100/55 98 11/26/16 23:00 61 11/26/16 22:00 64 11/26/16 21:06 99 2.00 11/26/16 21:00 72 11/26/16 20:00 98 Room Air 11/26/16 20:00 74 11/26/16 20:00 97.6 69 20 94/57 98 11/26/16 19:00 87 11/26/16 18:00 82 11/26/16 17:00 64 11/26/16 16:00 57 11/26/16 15:00 98.3 76 18 106/60 99 11/26/16 15:00 65 11/26/16 14:00 70 11/26/16 13:00 62 11/26/16 12:00 69 11/26/16 11:00 97.3 65 20 123/78 100 11/26/16 11:00 67 I/O 11/26/16 11/26/16 11/26/16 11/27/16 11/27/16 11/27/16 07:00 15:00 23:00 07:00 15:00 23:00 Intake Total 1600 ml 1080 ml 720 ml Output Total 750 ml Balance 850 ml 1080 ml 720 ml Intake Oral 600 ml 1080 ml 720 ml IV Total 1000 ml Output Urine Total 750 ml # Voids 3 1 # Bowel Movements 0 1 Physical Exam GENERAL: Well developed, well nourished. No acute distress. HEENT: Jugular venous pressure is normal. CHEST: Lungs clear to auscultation bilaterally. Unlabored respiratory effort. CARDIAC: S1 S2 regular rate and rhythm. ABDOMEN: Soft, nontender, no hepatosplenomegaly. Bowel sounds present. EXTREMITIES: No clubbing, cyanosis, or edema. Right groin OK Laboratory Laboratory Tests Test 11/27/16 05:20 White Blood Count 8.5 TH/MM3 Red Blood Count 4.11 MIL/MM3 Hemoglobin 13.1 GM/DL Hematocrit 39.1 % Mean Corpuscular Volume 95.1 FL Mean Corpuscular Hemoglobin 31.8 PG Mean Corpuscular Hemoglobin 33.5 % Concent Red Cell Distribution Width 13.3 % Platelet Count 208 TH/MM3 Mean Platelet Volume 9.0 FL Neutrophils (%) (Auto) 63.1 % Lymphocytes (%) (Auto) 26.5 % Monocytes (%) (Auto) 9.3 % Eosinophils (%) (Auto) 0.5 % Basophils (%) (Auto) 0.6 % Neutrophils # (Auto) 5.4 TH/MM3 Lymphocytes # (Auto) 2.3 TH/MM3 Monocytes # (Auto) 0.8 TH/MM3 Eosinophils # (Auto) 0.0 TH/MM3 Basophils # (Auto) 0.1 TH/MM3 CBC Comment DIFF FINAL Differential Comment Sodium Level 142 MEQ/L Potassium Level 4.0 MEQ/L Chloride Level 108 MEQ/L Carbon Dioxide Level 25.0 MEQ/L Anion Gap 9 MEQ/L Blood Urea Nitrogen 17 MG/DL Creatinine 0.83 MG/DL Estimat Glomerular Filtration 98 ML/MIN Rate Random Glucose 88 MG/DL Calcium Level 8.7 MG/DL Assessment and Plan Problem List: (1) Stented coronary artery Assessment and Plan: cont ASA 91mg and Brilinta (2) Coronary artery disease Assessment and Plan: stable post stent (3) ST elevation MO (STEMI) Assessment and Plan: BP and HR too low for ACEI or BB Assessment and Plan OK to DC. OV with me 1-2 weeks Problem Qualifiers (1) ST elevation MO (STEMI): Qualified Code: I21.21 - ST elevation myocardial infarction involving left circumflex coronary artery Madan Tafoya MD Nov 27, 2016 10:26
--- NOTE | 2016-11-27 11:43 | HHI.DCPOC ---
Discharge Care Plan Diagnosis: (1) Essential hypertension (2) Bipolar depression (3) Coronary artery disease (4) ST elevation ND (STEMI) (5) Stented coronary artery Goals to Promote Your Health * To prevent worsening of your condition and complications * To maintain your health at the optimal level Directions to Meet Your Goals Take your medications as prescribed Follow your dietary instruction Follow activity as directed Keep your appointments as scheduled Take your immunizations and boosters as scheduled If your symptoms worsen call your PCP, if no PCP go to Urgent Care Center or Emergency Room Smoking is Dangerous to Your Health. Avoid second hand smoke Call the 24-hour hour crisis hotline for domestic abuse at Varsha Gardner MD R1 Nov 27, 2016 11:43
--- NOTE | 2016-11-27 20:03 | EC ---
Study Study Date:11/27/2016 STUDY CONCLUSIONS SUMMARY LEFT VENTRICLE: The cavity size was normal. Wall thickness was normal. Systolic function was normal. The estimated ejection fraction was 55%. Wall motion was normal; there were no regional wall motion abnormalities. If LV function is below 40, please consider prescribing an ACEI or ARB or document rationale for non-use. PROCEDURE DATA STUDY STATUS: Elective. Procedure: Transthoracic echocardiography. Image quality was good. Scanning was performed from the parasternal, apical, and subcostal acoustic windows. Study completion: The patient tolerated the procedure well. Transthoracic echocardiography. M-mode, complete 2D, complete spectral Doppler, and color Doppler. Height: Height: 73in. Weight: Weight: 197.6lb. Body mass index: BMI: 26.1kg/m^2. Body surface area: BSA: 2.14m^2. Patient status: Inpatient. CARDIAC ANATOMY LEFT VENTRICLE: The cavity size was normal. Wall thickness was normal. Systolic function was normal. The estimated ejection fraction was 55%. Wall motion was normal; there were no regional wall motion abnormalities. AORTIC VALVE: Trileaflet; normal thickness leaflets. Doppler: Transvalvular velocity was within the normal range. There was no stenosis. No regurgitation. Valve area: 2.59cm^2 (Vmax). Indexed valve area: 1.21cm^2/m^2 (Vmax). AORTA: Aortic root: The aortic root was normal in size. MITRAL VALVE: Structurally normal valve. Doppler: Transvalvular velocity was within the normal range. There was no evidence for stenosis. No regurgitation. LEFT ATRIUM: The atrium was normal in size. RIGHT VENTRICLE: The cavity size was normal. Wall thickness was normal. PULMONIC VALVE: Doppler: Transvalvular velocity was within the normal range. There was no evidence for stenosis. No regurgitation. TRICUSPID VALVE: Structurally normal valve. Doppler: Transvalvular velocity was within the normal range. Trace regurgitation. PULMONARY ARTERY: The main pulmonary artery was normal-sized. Systolic pressure was within the normal range. RIGHT ATRIUM: The atrium was normal in size. PERICARDIUM: There was no pericardial effusion. SYSTEMIC VEINS: Inferior vena cava: The vessel was normal in size. Patient weight: 197.6lb _Ejection fraction:_ 65-75% _Fractional shortening:_ 32% up to 5Kg 5-11.5Kg 11.6-22.9Kg 23-45Kg 45-57Kg Aortic Root 7-13 <17 13-22 17-27 17-27 LA diam 6-13 <23 24-38 33-47 37-40 RVID 10-17 7-15 7-15 7-18 8-17 LVIDd 12-22 <32 24-38 33-47 37-40 LVPW 2-4 3-6 5-7 6-8 7-8 IVS 2-4 3-6 5-7 6-8 7-8 BASIC MEASUREMENTS ADULT NORMAL Left ventricle LV internal dimension, ED, chordal 45.8 mm 43-52 level, PLAX LV internal dimension, ES, chordal 35.4 mm 23-38 level, PLAX Fractional shortening, chordal level, *23 % >29 PLAX LV posterior wall thickness, ED 9.59 mm IVS/LVPW ratio, ED 0.99 <1.3 Ventricular septum Septal thickness, ED 9.51 mm Aortic valve Leaflet separation 16 mm 15-26 BASIC MEASUREMENTS ADULT NORMAL Aortic valve Leaflet separation 16 mm 15-26 Aorta Root diameter, ED 26 mm 20-37 Left atrium Anterior-posterior dimension, ES 23 mm 19-40 Anterior-posterior dimension index, ES 1.07 cm/m^2 <2.2 LA/aortic root ratio 0.88 DOPPLER MEASUREMENTS ADULT NORMAL Main pulmonary artery Pressure, S 25 mm Hg =30 Aortic valve Peak velocity, S 125 cm/s Valve area, Vmax 2.59 cm^2 Valve area index, Vmax 1.21 cm^2/m^2 Mitral valve Peak E-wave velocity 68.6 cm/s Peak A-wave velocity 40.5 cm/s Deceleration time 208 ms 150-230 Peak E/A ratio 1.7 Tricuspid valve Regurgitant peak velocity 219 cm/s Peak RV-RA gradient, S 19 mm Hg Maximal regurgitant velocity 219 cm/s Systemic veins Estimated CVP 10 mm Hg Right ventricle RV pressure, S 29 mm Hg <30 Pulmonic valve Peak velocity, S 100 cm/s LEGEND: Mean values are shown as u=mean value. Asterisk (*) plasencia values outside specified normal range. Prepared and signed by Rodrigo Ardon [id number]
--- NOTE | 2016-11-28 10:59 | HHI.DS ---
Discharge Summary Admission Date Nov 25, 2016 at 18:25 Discharge Date: Nov 27, 2016 Admitting Diagnosis STEMI alert (1) ST elevation GA (STEMI) Diagnosis: Principal Plan: Medically stable after catheterization and stenting on 11/[address] Tafoya. Continue medical management, including aspirin and ticagrelor per cardiology A beta nabil has not been started given asymptomatic low blood pressure Continue atorvastatin Hospital course: - STEMI by EKG, history classic. - Cardiology (Dr. Tafoya) consulted - Status post cardiac catheterization 11/25 with stent placed - ASA daily at 81 mg - Ticagrelor 90 mg by mouth twice a day - Pain control with Percocet 10 for mod-severe pain - Morphine 4 mg IV Q3H PRN chest pain - Echocardiogram - Telemetry - Vitals Q4H (2) Essential hypertension Diagnosis: Secondary Plan: BPs currently running low, max 123/70 but lows in 80s/50s, asymptomatic Cardiology DC'd carvedilol and we'll not sent home with ACEI or beta nabil on discharge Follow-up with Dr. Tafoya in 1-2 weeks to monitor (3) Bipolar depression Diagnosis: Secondary Plan: Continue Seroquel at 100 mg nightly, Neurontin at 300 mg daily, and Prozac at 20 mg daily on discharge. Hospital course: - Per patient takes Seroquel 300 mg HS, Neurontin 300 mg HS, Prozac 25 mg daily , but has been off medications for several weeks. - pt requests restarting meds and can check EKG to be sure he does not develop problems - likely will need to be addressed by outpatient psychiatrist (sees one at [facility]) but started meds at lower doses [facility] Brief History Mr Valverde is a 51-year-old male with history of hypertension currently not requiring medication and bipolar depression presenting with substernal chest pains beginning mid-morning of admission, slowly building to 10 out of 10 in severity. He had diaphoresis, nausea, numbness b/l hands. No shortness of breath or abdominal pain. No fevers. FH significant for father and uncle with early GA (60 yo for father, ~62 for uncle). He had a cardiac cath and had a stent placed with good result. He required shocking twice during the procedure because of arrhythmias but feels the electricity "made him think clearer and feel better". He reports feeling great today. CBC/BMP: 4/24/17 0520 11/27/16 0520 Significant Findings Laboratory Tests Test 11/25/16 11/26/16 11/27/16 18:10 03:15 05:20 White Blood Count 11.7 TH/MM3 12.5 TH/MM3 (4.0-11.0) (4.0-11.0) Monocytes (%) (Auto) 8.8 % (0.0-8.0) 10.0 % 9.3 % (0.0-8.0) (0.0-8.0) Monocytes # (Auto) 1.0 TH/MM3 1.2 TH/MM3 (0-0.9) (0-0.9) Prothrombin Time 12.1 SEC (9.8-11.6) Bedside Glucose 116 MG/DL (60-95) Calcium Level 10.3 MG/DL (8.5-10.1) Troponin I 0.11 NG/ML (0.02-0.05) Red Blood Count 4.16 MIL/MM3 4.11 MIL/MM3 (4.50-5.90) (4.50-5.90) Neutrophils (%) (Auto) 77.8 % (16.0-70.0) Neutrophils # (Auto) 9.7 TH/MM3 (1.8-7.7) Total Creatine Kinase 1466 U/L (39-308) Creatine Kinase MB 170.0 NG/ML (0.5-3.6) Creatine Kinase MB % 11.6 % (0.0-4.0) Triglycerides Level 183 MG/DL (42-150) Chloride Level 108 MEQ/L (98-107) Imaging Last 72 hours Impressions Chest X-Ray 11/25/16 1820 Signed Impressions: Service Date/Time: Friday, November 25, 2016 18:28 - CONCLUSION: No acute cardiopulmonary process. Garcia Milton MD PE at Discharge GENERAL: well-nourished pleasant adult white male lying in bed in no apparent distress SKIN: No rashes, ecchymoses or lesions. Cool and dry. HEAD: NC/AT EYES: PERRL. EOMI. No conjunctival injection or drainage. ENT: MMM. NECK: Supple, no lymphadenopathy. No JVD. CARDIOVASCULAR: Normal rate and rhythm. Normal S1/S2. No MRG. RESPIRATORY: Clear lung arriaza anteriorly. GASTROINTESTINAL: Abdomen soft, non-distended, non-tender. No hepato- splenomegaly or palpable masses. MUSCULOSKELETAL: Extremities without clubbing, cyanosis, or edema. NEUROLOGICAL: Awake and alert. Cranial nerves II through XII grossly intact. Moves all extremities without difficulty. Normal speech. Hospital Course Patient presented with history of untreated hypertension and bipolar depression , with subsequent chest pains concerning for ACS. Some were associated with autonomic symptoms. He also had a significant family medical history for ACS. He also is a 2 pack per day smoker of cigarettes and also smokes marijuana. Initial evaluation was consistent with STEMI by EKG and classic history. Cardiology (Dr. Tafoya) to the patient to catheter the day of admission. He received a stent at that time. During the procedure, he sustained ventricular tachyarrhythmias for which he was defibrillated twice, which resolved the arrhythmias and patient reported feeling mentally better thereafter. He was medical leave managed thereafter with aspirin, antiplatelet therapy, pain control, telemetry. Echocardiogram was also ordered. In regard to his bipolar depression, patient was taking Seroquel, Neurontin, Prozac that he had been off his medications for several weeks at that time. His Seroquel, Prozac, and gabapentin was restarted at lower doses than home medication doses on day 2 of stay. He will need to follow-up at [facility] with an outpatient psychiatrist. He was discharged to home on 11/27 in stable condition. He was discharged with Brilinta 90mg BID and aspirin 81mg daily per cardiology and will follow-up in 1- 2 weeks. He was also discharged with atorvastatin and refills for his psychotropic medications. Pt Condition on Discharge: Stable Discharge Disposition: Discharge Home Discharge Instructions DIET: Follow Instructions for: Heart Healthy Diet Activities you can perform: Regular-No Restrictions Follow up Referrals: Cardiology - 12/04/16 @ [facility] with Madan Tafoya MD PCP Follow-up - 1 Week New Medications: Atorvastatin (Atorvastatin) 40 Mg Tab 40 MG PO DAILY #30 TAB Docusate Sodium (Dok) 100 Mg Cap 100 MG PO Q12H #60 CAP Fluoxetine (Fluoxetine) 20 Mg Cap 20 MG PO DAILY #30 CAP Gabapentin (Neurontin) 300 Mg Cap 300 MG PO DAILY #30 CAP Oxycodone-Acetaminophen (Oxycodone-Acetaminophen) 5-325 mg Tab 1 TAB PO Q4H PRN PAIN SCALE 3 TO 10 #30 TAB Quetiapine (Quetiapine) 100 Mg Tab 100 MG PO HS #30 TAB Ticagrelor (Brilinta) 90 Mg Tab 90 MG PO BID #60 TAB ([Aspirin Chew]) 81 MG CHEW 81 MG PO DAILY #30 TAB.CHEW Discontinued Medications: Gabapentin (Neurontin) 300 Mg Cap 300 MG PO DAILY CAP Hydrocodone-Acetaminophen 5-325 mg (Wisdom 5-325 mg) 1 Tab 1 TAB PO Q6H PRN pain #15 TAB Quetiapine fumurate 400 mg (Seroquel 400 mg) 400 Mg Tab 400 MG PO HS TAB Silver Sulfadiazine (Silvadene) 50 Gm Cr 1 APPLIC TOP BID burn Days 14 TUBE Zolpidem Tartrate (Ambien 10 Mg Tab) 10 Mg Tab 10 MG PO HS TAB Varsha Gardner MD R1 Nov 28, 2016 10:58
--- NOTE | 2016-11-28 13:16 | EKG ---
Date Performed: 11/26/2016 Time Performed: 11:53:54 PTAGE: 51 years EKG: Sinus bradycardia Lateral T wave changes may be due to myocardial ischemia Abnormal ECG NO PREVIOUS TRACING DOCTOR: Sanjay Baltazar Interpretating Date/Time 11/28/2016 13:15:27
== END 2016-11-27 12:15 | disposition home or self-care (01) | DRG 246 ==
LOC: NEPE 18:04 → NEDA 18:25 → HCIS 19:42
PROVIDERS: ADMIT Family Medicine; ATTEND Family Medicine
PROC: 027034Z Dilation of Coronary Artery, One Artery with Drug-eluting Intraluminal Device, Percutaneous Approach (ICD-10-PCS; principal; 2016-11-25)
PROC: 4A023N7 Measurement of Cardiac Sampling and Pressure, Left Heart, Percutaneous Approach (ICD-10-PCS; 2016-11-25)
PROC: B2111ZZ Fluoroscopy of Multiple Coronary Arteries using Low Osmolar Contrast (ICD-10-PCS; 2016-11-25)
PROC: B2151ZZ Fluoroscopy of Left Heart using Low Osmolar Contrast (ICD-10-PCS; 2016-11-25)
PROC: 5A2204Z Restoration of Cardiac Rhythm, Single (ICD-10-PCS; 2016-11-25)
DX: I21.21 ST elevation (STEMI) myocardial infarction involving left circumflex coronary artery (principal); I49.01 Ventricular fibrillation; I25.82 Chronic total occlusion of coronary artery; I25.10 Atherosclerotic heart disease of native coronary artery without angina pectoris; I10 Essential (primary) hypertension; F31.9 Bipolar disorder, unspecified; F17.210 Nicotine dependence, cigarettes, uncomplicated; Z82.49 Family history of ischemic heart disease and other diseases of the circulatory system
CPT/HCPCS: 71010; 80048; 80061; 82310; 82435; 82550; 82552; 82565; 82947; 83735; 83880; 84132; 84295; 84484; 84520; 85025; 85610; 85730; 92941; 93005; 93306; 93458; C1725; C1769; C1874; C1887; C1893; J0583; J1644; J2001; J2250; J3010; J7030; Q9967